=== PATIENT | female | born 1995 | race African-American/Black ===

== ENCOUNTER 2018-05-19 05:34 | Emergency (ER) | payer BC ==
[~2018-05-19] VITALS: Ht 162.6 cm; Wt 69.0 kg
[2018-05-19] MEDS ORDERED: ONDANSETRON HCL4 M2 PO (05:54)
[2018-05-19] MEDS ORDERED: CARAFATE 1 GM TA1 G1 PO (05:55)
[2018-05-19 05:59] LABS: URINE BILIRUBIN NEGATIVE (Negative); URINE BLOOD NEGATIVE (Negative); URINE CLARITY CLEAR; URINE COLOR YELLOW; URINE GLUCOSE-RANDOM* NEGATIVE (Negative); URINE KETONES NEGATIVE (Negative); URINE LEUKOCYTES-REFLEX NEGATIVE (Negative); URINE NITRITE-REFLEX NEGATIVE (Negative); URINE PROTEIN (DIPSTICK) NEGATIVE (Negative); URINE UROBILINOGEN 0.2 E.U./dl (0.2-1.0)
[2018-05-19 06:03] LABS: ABSOLUTE NEUTROPHILS 5.4 thou/uL (1.4-8.2); BASOPHILS 0.8 % (0.0-2.0); EOSINOPHILS 0.2 % (0.0-3.0); HEMATOCRIT 36.9 % (37.0-47.0); HEMOGLOBIN 12.8 gm/dL (12.0-15.0); LYMPHOCYTES 26.9 % (24.0-44.0); MCH 29.9 pg (26.0-34.0); MCHC 34.8 g/dL (28.0-37.0); MCV 86.1 fL (80.0-100.0); MONOCYTES 6.5 % (1.0-8.0); PLATELET COUNT 310 thou/uL (150-400); POLYS 65.6 % (36.0-66.0); RBC 4.28 mil/uL (4.20-5.00); RDW 12.1 % (10.5-14.5); WBC 8.3 thou/uL (4.0-11.0)
[2018-05-19 06:11] LABS: CALCIUM 9.3 mg/dL (8.5-10.1); CREATININE 0.7 mg/dL (0.6-1.0); POTASSIUM 3.8 mmol/L (3.5-5.1)
[2018-05-19 06:17] LABS: ALBUMIN 4.1 g/dL (3.4-5.0); DIRECT BILIRUBIN 0.2 mg/dL (<0.1-0.3); TOTAL BILIRUBIN 0.9 mg/dL (<0.1-1.0); TOTAL PROTEIN 7.9 g/dL (6.4-8.2)
[2018-05-19] MEDS ORDERED: REGLAN 10 MG TA10 MG PO (07:22)
[2018-05-19] MEDS ORDERED: BENTYL 20 MG TA20 M1 PO (07:22)
[2018-05-19] MEDS ORDERED: ZOFRAN ODT4 MG PO (07:22)
[2018-05-19 07:26] VITALS: BP 120/79
== END 2018-05-19 07:29 | disposition home or self-care (01) ==
LOC: ER 05:34
PROVIDERS: Student in an Organized Health Care Education/Training Program
DX: K52.9 Noninfective gastroenteritis and colitis, unspecified (principal)